=== PATIENT | female | born 1990 | race Two or more races ===

== ENCOUNTER 2020-01-13 19:58 | Emergency (ER) | payer OTHER ==
[~2020-01-13] VITALS: Ht 154.9 cm; Wt 74.8 kg
[2020-01-13 20:11] VITALS: BP 155/91
[2020-01-13 20:26] LABS: Urine Bacteria FEW /hpf (None Seen); Urine Blood Negative /uL (Negative); Urine Mucus MODERATE (None Seen); Urine Specific Gravity 1.022 (1.001-1.035); Urine WBC 2 /hpf (0 - 5)
== END 2020-01-14 01:26 | disposition left against medical advice (07) ==
LOC: ER 19:58
DX: F41.9 Anxiety disorder, unspecified (principal); Z53.21 Procedure and treatment not carried out due to patient leaving prior to being seen by health care provider
CPT/HCPCS: 81001; 81025

== ENCOUNTER 2020-01-17 13:06 | Emergency (ER) | payer OTHER ==
[~2020-01-17] VITALS: Ht 162.6 cm; Wt 72.6 kg
[2020-01-17 13:12] VITALS: BP 110/74
== END 2020-01-17 13:58 | disposition left against medical advice (07) ==
LOC: EDBD 13:06 → ER 13:06
DX: R11.2 Nausea with vomiting, unspecified (principal); Z53.21 Procedure and treatment not carried out due to patient leaving prior to being seen by health care provider